=== PATIENT | female | born 1950 | race Caucasian/White ===

== ENCOUNTER 2020-06-19 14:12 | Observation (INO) ==
[2020-06-19] MEDS ORDERED: methylPREDNISolone SOD SUC 125 MG/2 ML VIAL IV STA (17:08)
[2020-06-19] MEDS ORDERED: ALBUTEROL/IPRATROPIUM 3 ML NEB RESP TX STA (17:08)
[2020-06-19] MEDS ORDERED: cefTRIAXone 1,000 MG in SODIUM CHLORIDE 0.9% 100 ML IV STA (17:09)
[2020-06-19 17:25] LABS: Basophils # 0.1 10*3/uL (0.0-0.2); Eosinophils # 0.2 10*3/uL (0.0-0.87); Eosinophils % 2.1 % (0.00-10.9); Hemoglobin 14.1 GM/DL (12.0-16.0); Immature Granulocytes % 0.4 %; Immature Granulocytes Absolute 0.03 #; Lymphocytes # 1.8 10*3/uL (1.4-4.0); Lymphocytes % 23.2 % (21.3-54.2); Mean Corpuscular HGB Conc 32.8 GM/DL (32-36); Mean Corpuscular Volume 91.5 FL (87-102); Mean Platelet Volume 11.1 FL (9.6-12.0); Monocytes % 7.6 % (1.7-12.7); Neutrophils % 65.7 % (38.7-73.9); Platelet Count 304 T/CUMM (130-400); Red Cell Distribution Width 14.6 % (9.3-17.3); White Blood Count 7.9 T/CUMM (4-12)
[2020-06-19 17:39] LABS: Alanine Aminotransferase 14 U/L (13-56); Albumin 3.3 G/DL (3.4-5.0); Alkaline Phosphatase 102 U/L (45-117); Aspartate Amino Transferase 13 U/L (0-37); Bilirubin,Total < 0.39 MG/DL (0.2-1.0); Blood Urea Nitrogen 7 MG/DL (7-18); Calcium 8.8 MG/DL (8.5-10.1); Estimated Glom Filtration Rate 89 ML/MIN; Glucose 100 MG/DL (74-106); Osmolality,Calculated 278.3 MOS/KG (273-304); Total Protein 6.6 G/DL (6.4-8.3)
[2020-06-19] MEDS ORDERED: ONDANSETRON 4 MG/2 ML VIAL IV PRN (18:03)
[2020-06-19] MEDS ORDERED: GLUCAGON 1 MG VIAL IM PRN (18:03)
[2020-06-19] MEDS ORDERED: ACETAMINOPHEN 325 MG TABLET PO PRN (18:03)
[2020-06-19] MEDS ORDERED: DEXTROSE 50% 25 GM/50 ML SYRINGE IV PRN (18:03)
[2020-06-19] MEDS: GABAPENTIN 100 MG CAPSULE PO SCH (21:02)
[2020-06-19] MEDS: methylPREDNISolone SOD SUC 40 MG/1 ML VIAL IV SCH (21:02)
[2020-06-20 05:31] LABS: Basophils % 0.2 % (0.0-0.8); Hematocrit 43.9 VOL% (35.7-47.0); Hemoglobin 14.1 GM/DL (12.0-16.0); Immature Granulocytes % 0.5 %; Immature Granulocytes Absolute 0.02 #; Lymphocytes # 0.7 10*3/uL (1.4-4.0); Mean Corpuscular HGB Conc 32.1 GM/DL (32-36); Mean Corpuscular Volume 91.6 FL (87-102); Mean Platelet Volume 10.3 FL (9.6-12.0); Monocytes % 0.5 % (1.7-12.7); Neutrophils % 82.8 % (38.7-73.9); Platelet Count 279 T/CUMM (130-400); Red Blood Count 4.79 MC/CUMM (3.8-5.5); Red Cell Distribution Width 14.4 % (9.3-17.3); White Blood Count 4.1 T/CUMM (4-12)
[2020-06-20 06:21] LABS: Osmolality,Calculated 276.8 MOS/KG (273-304)
[2020-06-20] MEDS ORDERED: cefTRIAXone 1,000 MG in SYRINGE 1 EACH IV SCH (07:30)
[2020-06-20] MEDS: methylPREDNISolone SOD SUC 40 MG/1 ML VIAL IV SCH ×3 (08:38→23:16)
[2020-06-20] MEDS: DICLOFENAC SODIUM 50 MG TABLET PO SCH (08:39)
[2020-06-20] MEDS: cefTRIAXone 1,000 MG in SYRINGE 1 EACH IV SCH (08:39)
[2020-06-20] MEDS: ENOXAPARIN 40 MG/0.4 ML SYRINGE SUBCUT SCH (08:39)
[2020-06-20] MEDS: AZITHROMYCIN 250 MG TABLET PO SCH (08:39)
[2020-06-20] MEDS: PANTOPRAZOLE 40 MG TABLET PO SCH (08:40)
[2020-06-20] MEDS: GABAPENTIN 100 MG CAPSULE PO SCH ×3 (08:40→21:14)
[2020-06-20] MEDS: NICOTINE 14 MG/24 HR PATCH TRANSDERM SCH (08:42)
[2020-06-20] MEDS ORDERED: methylPREDNISolone SOD SUC 40 MG/1 ML VIAL IV SCH (11:01)
[2020-06-20] MEDS: ALBUTEROL/IPRATROPIUM 3 ML NEB RESP TX SCH ×4 (11:36→23:00)
[2020-06-21] MEDS: ALBUTEROL/IPRATROPIUM 3 ML NEB RESP TX SCH ×3 (03:30→11:32)
[2020-06-21 06:14] LABS: Basophils % 0.1 % (0.0-0.8); Hematocrit 37.9 VOL% (35.7-47.0); Hemoglobin 12.5 GM/DL (12.0-16.0); Immature Granulocytes % 0.6 %; Immature Granulocytes Absolute 0.06 #; Lymphocytes # 0.4 10*3/uL (1.4-4.0); Lymphocytes % 4.2 % (21.3-54.2); Mean Platelet Volume 10.7 FL (9.6-12.0); Monocytes % 3.2 % (1.7-12.7); Neutrophils % 91.9 % (38.7-73.9); Platelet Count 262 T/CUMM (130-400); Red Blood Count 4.21 MC/CUMM (3.8-5.5); Red Cell Distribution Width 14.6 % (9.3-17.3); White Blood Count 10.4 T/CUMM (4-12)
[2020-06-21 06:38] LABS: Hypochromasia 1+; Lymphocytes 4 % (20-55); Microcytosis Slight; Platelet Estimate Adequate; Segmented Neutrophils 92 % (50-85); Total Cells Counted 100
[2020-06-21 06:39] LABS: Osmolality,Calculated 281.5 MOS/KG (273-304)
[2020-06-21 08:06] VITALS: BP 148/62
[2020-06-21] MEDS: PANTOPRAZOLE 40 MG TABLET PO SCH (09:59)
[2020-06-21] MEDS: methylPREDNISolone SOD SUC 40 MG/1 ML VIAL IV SCH (09:59)
[2020-06-21] MEDS: GABAPENTIN 100 MG CAPSULE PO SCH (09:59)
[2020-06-21] MEDS: AZITHROMYCIN 250 MG TABLET PO SCH (09:59)
[2020-06-21] MEDS: cefTRIAXone 1,000 MG in SYRINGE 1 EACH IV SCH (09:59)
[2020-06-21] MEDS: ENOXAPARIN 40 MG/0.4 ML SYRINGE SUBCUT SCH (10:04)
[2020-06-21] MEDS: NICOTINE 14 MG/24 HR PATCH TRANSDERM SCH (10:06)
[2020-06-21] MEDS: DICLOFENAC SODIUM 50 MG TABLET PO SCH (10:06)
== END 2020-06-21 11:50 | disposition home health service (06) ==
LOC: N.TELEN 14:12 → N.ED 14:12 → N.TELEN 19:52
PROVIDERS: ADMIT Family Medicine; ATTEND Family Medicine